=== PATIENT | female | born 1945 | race Caucasian/White ===

== ENCOUNTER → 2019-10-09 | Outpatient (CLI) | payer OTHER ==
[~2019-10-09] MED LIST: AMBIEN 10 MG TA10 MG PO; BISA-LAX5 MG PO; COUMADIN 10MG T10 M1 PO; FOLIC ACID1 MG PO; FOSAMAX; HYDRALAZINE 5050 M1 GT; JANTOVEN7.5 MG PO; NORCO 5-325 TA1 EACH PO; NORVASC10 MG PO; PLAVIX 75 MG TA75 MG PO; PRILOSEC 20 MG20 MG PO; QVAR; THEREMS1 EACH PO; TRILEPTAL300 MG/5 M PO; ZYPREXA7.5 MG PO; [UNRECOGNIZED DRUG - CODE] PO
== END ==
LOC: RAD 13:12
DX: J47.9 Bronchiectasis, uncomplicated (principal); R06.00 Dyspnea, unspecified

== ENCOUNTER → 2020-10-23 | Outpatient (CLI) | payer OTHER | LOC: RAD 12:44 | PROVIDERS: ATTEND Internal Medicine | DX: J84.10 Pulmonary fibrosis, unspecified (principal); J98.4 Other disorders of lung; M41.85 Other forms of scoliosis, thoracolumbar region ==